=== PATIENT | female | born 1935 | race Caucasian/White ===

== ENCOUNTER 2019-04-08 20:47 | Emergency (ER) | payer MEDICARE ==
[2019-04-08] MEDS ORDERED: NS 0.9% 1000 ML** 1,000 ML IV ONE (21:29)
[2019-04-08 21:44] LABS: ABS Eosinophils 0.1 10^3/ul (0-0.6); ABS Lymphocytes 0.8 10^3/ul (1.0-4.8); ABS Monocytes 0.5 10^3/ul (0-0.8); ABS Neutrophils 5.7 10^3/ul (1.5-7.7); Eosinophil % 0.8 %; Hematocrit 38 % (35-47); Hemoglobin 12.6 g/dL (12.0-16.0); Mean Corpuscular HGB Conc 33 g/dL (31-36); Mean Corpuscular Hemoglobin 30 pg (27-31); Mean Corpuscular Volume 90 fL (80-97); Mean Platelet Volume 7.7 fL (7.4-10.4); Platelet Count 251 10^3/uL (150-450); Red Blood Count 4.28 10^6 /uL (3.70-4.87); Red Cell Distribution Width 16 % (10-15); White Blood Count 7.1 10^3/uL (3.5-10.8)
--- NOTE | 2019-04-08 21:50 | ED ---
Syncope/Near Syncope - HPI Summary HPI Summary: 83-year-old female presents with syncopal episode today. She states she was standing at a wedding for 3 hours without drinking anything. She says she felt very warm and felt funny. She then walked to the bathroom. States she started to feel very weak and ended up passing out. States she was caught before she hit the ground and she did not injure herself. She denies any chest pressures or shortness of breath. She she has passed out before it was just from dehydration. She states she feels very dry. No vomiting. No dizziness. States she feels fine now. Has history of high blood pressure and glaucoma but no heart issues. - History Of Current Complaint Chief Complaint: EDSyncope Time Seen by Provider: 04/08/19 21:23 - Allergies/Home Medications Home Medications: Home Medications ALPRAZolam TAB* [Xanax TAB*] 0.5 mg PO BID PRN 04/08/19 [History Confirmed 04/08] Metoprolol Tartrate TAB* [Lopressor TAB*] 25 mg PO BID 04/08/19 [History Confirmed 04/08/19] PMH/Surg Hx/FS Hx/Imm Hx Endocrine/Hematology History: Denies: Hx Anticoagulant Therapy, Hx Diabetes Cardiovascular History: Reports: Hx Hypertension Infectious Disease History: Yes Infectious Disease History: Denies: Traveled Outside the [place] in Last 30 Days - Family History Known Family History: Negative: Cardiac Disease - Social History Alcohol Use: Occasionally Substance Use Type: Reports: None Smoking Status (MU): Never Smoked Tobacco Review of Systems Negative: Fever Negative: Chest Pain Negative: Shortness Of Breath Positive: Syncope All Other Systems Reviewed And Are Negative: Yes Physical Exam Triage Information Reviewed: Yes Vital Signs On Initial Exam: Initial Vitals Temp Pulse Resp BP Pulse Ox 97 F 68 19 145/66 97 04/08/19 20:59 04/08/19 20:59 04/08/19 20:59 04/08/19 20:59 04/08/19 20:59 Vital Signs Reviewed: Yes Appearance: Positive: Well-Appearing Skin: Positive: Warm, Dry Head/Face: Positive: Normal Head/Face Inspection Eyes: Positive: Normal, EOMI, LANI, Conjunctiva Clear ENT: Positive: Normal ENT inspection, Pharynx normal, TMs normal Respiratory/Lung Sounds: Positive: Clear to Auscultation, Breath Sounds Present Cardiovascular: Positive: Normal, RRR Abdomen Description: Positive: Nontender, Soft Bowel Sounds: Positive: Present Musculoskeletal: Positive: Normal Neurological: Positive: Sensory/Motor Intact, Alert, Oriented to Person Place, Time, CN Intact II-III Psychiatric: Positive: Normal Procedures - Sedation Patient Received Moderate/Deep Sedation with Procedure: No Diagnostics - Vital Signs Vital Signs Temp Pulse Resp BP Pulse Ox 04/08/19 20:59 97 F 68 19 145/66 97 - Laboratory Lab Results: Lab Results 04/08/19 Range/Units 21:34 WBC 7.1 (3.5-10.8) 10^3/uL RBC 4.28 (3.70-4.87) 10^6 /uL Hgb 12.6 (12.0-16.0) g/dL Hct 38 (35-47) % MCV 90 (80-97) fL MCH 30 (27-31) pg MCHC 33 (31-36) g/dL RDW 16 H (10-15) % Plt Count 251 (150-450) 10^3/uL MPV 7.7 (7.4-10.4) fL Neut % (Auto) 80.6 % Lymph % (Auto) 11.0 % [place] % (Auto) 7.1 % Eos % (Auto) 0.8 % Baso % (Auto) 0.5 % Absolute Neuts (auto) 5.7 (1.5-7.7) 10^3/ul Absolute Lymphs (auto) 0.8 L (1.0-4.8) 10^3/ul Absolute Monos (auto) 0.5 (0-0.8) 10^3/ul Absolute Eos (auto) 0.1 (0-0.6) 10^3/ul Absolute Basos (auto) 0.0 (0-0.2) 10^3/ul Absolute Nucleated RBC 0.0 10^3/ul Nucleated RBC % 0.0 Result Diagrams: 04/08/19 21:34 04/08/19 21:34 Lab Statement: Any lab studies that have been ordered have been reviewed, and results considered in the medical decision making process. - EKG No standard instances Cardiac Rate: Tachycardia EKG Rhythm: Sinus Tachycardia Summary of EKG Findings: sinus rhythm Re-Evaluation - Re-Evaluation First Eval Re-Evaluation Time: 23:14 Change: Unchanged Comment: still feels good, no chest pain or SOB. feels less dry, able to ambulate to bathroom without incidence Course/Dx Course Of Treatment: 83-year-old female presents with syncopal episode today. She states she was standing at a wedding for 3 hours without drinking anything. She says she felt very warm and felt funny. She then walked to the bathroom. States she started to feel very weak and ended up passing out. States she was caught before she hit the ground and she did not injure herself. She denies any chest pressures or shortness of breath. She she has passed out before it was just from dehydration. She states she feels very dry. No vomiting. No dizziness. States she feels fine now. Has history of high blood pressure and glaucoma but no heart issues. On exam has normal physical exam. EKG shows sinus rhythm. troponin .01. gave fluids and vitals not orthostatic. likely was vasovagal syncope. will have follow up with primary. patient understand and agrees with plan. - Diagnoses Differential Diagnosis/HQI/PQRI: Positive: Dysrhythmia, Hypovolemia, Metabolic Reaction, Myocardial Infarction Provider Diagnoses: Syncope Discharge ED - Sign-Out/Discharge Documenting (check all that apply): Patient Departure - Discharge Plan Condition: Good Disposition: HOME Patient Education Materials: Syncope (ED) Referrals: No Primary Care Phys,NOPCP [Primary Care Provider] - Additional Instructions: drink plenty of fluids follow up with primary Return to ED if develop any chest pain, shortness of breath, or any new or worsening symptoms - Billing Disposition and Condition Condition: GOOD Disposition: Home
[2019-04-08 22:00] LABS: Albumin 3.9 g/dL (3.2-5.2); Albumin/Globulin Ratio 1.4 (1-3); BUN/Creatinine Ratio 25.5 (8-20); Calcium 9.5 mg/dL (8.6-10.3); EGFR African American 65.6 (>60); EGFR Non-African American 54.2 (>60); Globulin 2.7 g/dL (2-4); Magnesium 2.2 mg/dL (1.9-2.7); Potassium 3.9 mmol/L (3.5-5.0); Total Bilirubin 0.3 mg/dL (0.2-1.0); Total Protein 6.6 g/dL (6.4-8.9)
[2019-04-08 22:02] LABS: Troponin I 0.01 ng/mL (<0.04)
[2019-04-08 22:34] LABS: TSH (Thyroid Stimulating Horm) 1.65 mcIU/mL (0.34-5.60)
[2019-04-09 00:04] VITALS: BP 178/90
== END 2019-04-09 00:02 | disposition home or self-care (01) ==
LOC: ED 20:47
DX: R55 Syncope and collapse (principal); I10 Essential (primary) hypertension; Z79.899 Other long term (current) drug therapy; R94.31 Abnormal electrocardiogram [ECG] [EKG]
CPT/HCPCS: 36415; 80053; 83605; 83735; 84443; 84484; 85025; 93005; 96360; 96361; 99284